=== PATIENT | female | born 1980 | race Caucasian/White ===

== ENCOUNTER 2018-02-22 09:26 | Outpatient (CLI) | payer OTHER | END 2018-02-22 09:44 | disposition home or self-care (01) | LOC: LAB 09:26 | DX: E08.9 Diabetes mellitus due to underlying condition without complications (principal); R10.9 Unspecified abdominal pain; Z13.1 Encounter for screening for diabetes mellitus; Z11.3 Encounter for screening for infections with a predominantly sexual mode of transmission; Z13.220 Encounter for screening for lipoid disorders; Z13.0 Encounter for screening for diseases of the blood and blood-forming organs and certain disorders involving the immune mechanism; L08.9 Local infection of the skin and subcutaneous tissue, unspecified ==

== ENCOUNTER 2018-02-25 09:19 | Outpatient (CLI) | payer OTHER | END 2018-02-25 09:29 | disposition home or self-care (01) | LOC: LAB 09:19 | DX: R10.9 Unspecified abdominal pain (principal); E08.8 Diabetes mellitus due to underlying condition with unspecified complications; L08.9 Local infection of the skin and subcutaneous tissue, unspecified ==

== ENCOUNTER → 2018-08-08 09:28 | Outpatient (CLI) | payer OTHER | END | disposition home or self-care (01) | LOC: LAB 09:28 | DX: E08.8 Diabetes mellitus due to underlying condition with unspecified complications (principal) ==